=== PATIENT | male | born 1955 | race Hispanic/Latino ===

== ENCOUNTER 2016-11-04 08:44 | Day surgery (SDC) | payer MEDICARE, OTHER ==
[~2016-11-04] VITALS: Ht 172.7 cm; Wt 71.0 kg
[~2016-11-04 08:44] MED LIST: 0.9% Sodium Chloride 1,000 ML IV SCH; ASPI-973 PO; CLOP75TA3 PO; LIP40 PO; MULT-1018 PO; OLAN7.5T3 PO; POLY17PO6 PO; Sodium Chloride LOK Flush 10 mL Syringe IV PRN; fentaNYL-PF 50 mCg/mL 2 mL Inj IVPUSH PRN
[2016-11-04 09:32] VITALS: BP 108/66; PULSE 57; RESP 16; O2SAT 99
[2016-11-04 10:31] VITALS: BP 101/60; PULSE 52; RESP 16; O2SAT 100
[2016-11-04 10:41] VITALS: BP 100/59; PULSE 49; RESP 16; O2SAT 98
[2016-11-04 10:51] VITALS: BP 104/60; PULSE 49; RESP 16; O2SAT 100
--- NOTE | 2016-11-04 11:39 | ENDO ---
[address] [address] ENDOSCOPY PROCEDURE PATIENT: VALERIE RICE : 1955 MR#: [id number] ADMIT: 11/04/2016 JOB ID: [id number] DATE OF SERVICE: 11/04/2016 TYPE OF OPERATION: Colonoscopy. PREOPERATIVE DIAGNOSIS: Guiac-positive stools. POSTOPERATIVE DIAGNOSIS: Normal colonoscopy. ANESTHESIA: Fentanyl 100 mcg, Versed 5 mg IV administered. COMPLICATIONS: None. BLOOD LOSS: Minimal. DESCRIPTION OF PROCEDURE: After risks and benefits were explained to the patient, informed consent was obtained. After anesthesia administered, colonoscope was then inserted from the rectum to the cecum. Mucosa carefully examined. Prep of the patient was excellent. After procedure was done, the scope withdrawn and procedure terminated. FINDINGS: Upon inspection of the anus, no masses, hemorrhoids, ulcers, or fissures that were seen. Throughout the entire examination, there were no polyps, masses, or lesions. Retroflexion was normal. IMPRESSION: Normal colonoscopy. RECOMMENDATION: Repeat colonoscopy in 10 years for patient. Follow up in GI clinic as needed. MARKO
== END 2016-11-04 23:59 | disposition home or self-care (01) ==
LOC: END 08:44
PROVIDERS: ATTEND Internal Medicine Gastroenterology
DX: R19.5 Other fecal abnormalities (principal); K59.00 Constipation, unspecified; R47.1 Dysarthria and anarthria; Z79.82 Long term (current) use of aspirin; Z79.02 Long term (current) use of antithrombotics/antiplatelets; Z86.73 Personal history of transient ischemic attack (TIA), and cerebral infarction without residual deficits
CPT/HCPCS: 45378; G0500; J7030